=== PATIENT | female | born 1980 | race Two or more races ===

== ENCOUNTER 2018-04-15 08:38 | Outpatient (CLI) | payer OTHER | END 2018-04-15 08:55 | disposition home or self-care (01) | LOC: SONOGRAMA 08:38 | DX: E04.1 Nontoxic single thyroid nodule (principal) ==

== ENCOUNTER 2023-08-20 19:57 | Inpatient (IN) | payer OTHER ==
[~2023-08-20] VITALS: Ht 165.1 cm; Wt 2.7 kg
[2023-08-20] MEDS ORDERED: HUMALOG ×2 (21:47→21:48)
[2023-08-20] MEDS ORDERED: [UNRECOGNIZED DRUG - OTHER] (21:47)
[2023-08-20] MEDS ORDERED: HUMULIN N (21:47)
[2023-08-20] MEDS ORDERED: HUMOLIN N (21:48)
[2023-08-20 21:51] LABS: HEMATOCRIT 35.8 % (36.0-45.00); HEMOGLOBIN 12.3 g/dL (12.0-15.00); MEAN CELL VOLUME 88.3 fL (80.00-100.00); MEAN CORPUSCULAR HEMOGLOBIN 30.4 pg (27.00-32.0); MEAN CORPUSCULAR HGB CONC 34.4 g/dl (32.0-36.0); RED BLOOD COUNT 4.05 M/uL (4.00-6.00); RED CELL DISTRIBUTION WIDTH 15.8 % (11.5-14.5)
[2023-08-20 21:53] LABS: PLATELET COUNT 124 K/uL (150-450)
[2023-08-20 22:22] LABS: URIC ACID 3.9 mg/dL (2.5-7.5)
[2023-08-21 18:44] LABS: HEMATOCRIT 39.2 % (36.0-45.00); HEMOGLOBIN 12.9 g/dL (12.0-15.00); MEAN CELL VOLUME 89.1 fL (80.00-100.00); MEAN CORPUSCULAR HEMOGLOBIN 29.4 pg (27.00-32.0); PLATELET COUNT 134 K/uL (150-450); RED CELL DISTRIBUTION WIDTH 15.2 % (11.5-14.5)
[2023-08-22 06:37] LABS: HEMATOCRIT 34.1 % (36.0-45.00); HEMOGLOBIN 11.8 g/dL (12.0-15.00); MEAN CELL VOLUME 87.9 fL (80.00-100.00); MEAN CORPUSCULAR HEMOGLOBIN 30.6 pg (27.00-32.0); MEAN CORPUSCULAR HGB CONC 34.8 g/dl (32.0-36.0); PLATELET COUNT 136 K/uL (150-450); RED BLOOD COUNT 3.87 M/uL (4.00-6.00); RED CELL DISTRIBUTION WIDTH 15.5 % (11.5-14.5)
== END 2023-08-24 13:29 | disposition home or self-care (01) | DRG 788 ==
LOC: LDR 19:57 → OB/GYN 19:57 → O/R 08-21 13:19 → OB/GYN 08-21 14:24
PROVIDERS: ADMIT Specialist; ATTEND Specialist
PROC: 4A1HXCZ Monitoring of Products of Conception, Cardiac Rate, External Approach (ICD-10-PCS; 2023-08-20)
PROC: 10D00Z1 Extraction of Products of Conception, Low, Open Approach (ICD-10-PCS; principal; 2023-08-21 11:30)
DX: O24.12 Pre-existing type 2 diabetes mellitus, in childbirth (principal); E11.8 Type 2 diabetes mellitus with unspecified complications; O69.89X0 Labor and delivery complicated by other cord complications, not applicable or unspecified; O99.284 Endocrine, nutritional and metabolic diseases complicating childbirth; E03.9 Hypothyroidism, unspecified; O13.4 Gestational [pregnancy-induced] hypertension without significant proteinuria, complicating childbirth; O32.2XX0 Maternal care for transverse and oblique lie, not applicable or unspecified; Z3A.37 37 weeks gestation of pregnancy; Z37.0 Single live birth; Z79.4 Long term (current) use of insulin; Z20.822 Contact with and (suspected) exposure to COVID-19